=== PATIENT | female | born 1985 | race Caucasian/White ===

== ENCOUNTER → 2016-08-27 | Outpatient (CLI) | payer BC ==
--- NOTE | 2016-08-27 14:21 | DI ---
History: evaluation, a second trimester. Prior study: None. Procedure study performed transabdominally using the mid frequency transducer Findings: Single living intrauterine identified in vertex presentation. Normal amniotic flu id volume. Fundal placenta without evidence of abruption or calcification. . age parameters including BPD, HC, AC & FL are in fairly close agreement varying between 19 we eks 2 days and 19 weeks 5 days, aggregate 19 weeks 4 days. By dates, 19 weeks one day is recorded. ED D is 01/20/17 heart rate 150 beats per minute. anatomy: Bony calvarium is normal. Intracranial contents normal regarding ventricles. Small cho roid plexus cyst identified measuring about 3 mm in diameter. No evidence of nuchal thickening. Heart is well-visualized and appears unremarkable. No evidence of ascites. No gastric wall abnormalities seen. Liver spleen and kidneys are normal. No ascites identified. Extremities unremarkable to extent detected. No sonographic evidence of cleft palate. Dorsal spine normal. Impression: Single living intrauterine , estimated gestational age 19 weeks 4 days by examin ation. Small choroid plexus cyst. Suggest repeat ultrasound after week 26
== END ==
LOC: US 10:45
PROVIDERS: ATTEND Family Medicine
DX: Z36 Encounter for antenatal screening of mother (principal); Z3A.19 19 weeks gestation of pregnancy
CPT/HCPCS: 76805

== ENCOUNTER → 2016-10-29 | Outpatient (CLI) | payer BC ==
[2016-10-29 10:18] LABS: HEMATOCRIT 34.8 % (37.0-47.0); HEMOGLOBIN 11.6 g/dL (12.0-16.0); MEAN CORPUSCULAR HEMOGLOBIN 29.7 PG (27-31); MEAN CORPUSCULAR HGB CONC 33.3 g/dL (33-37); MEAN PLATELET VOLUME 10.2 FL (7.4-12.2); RED BLOOD COUNT 3.91 10^6/uL (4.20-5.40)
== END ==
LOC: MOB LAB 08:52
PROVIDERS: ATTEND Family Medicine
DX: Z36 Encounter for antenatal screening of mother (principal); Z3A.28 28 weeks gestation of pregnancy
CPT/HCPCS: 82950; 84443; 85027

== ENCOUNTER → 2016-11-05 | Outpatient (CLI) | payer BC ==
--- NOTE | 2016-11-06 11:41 | DI ---
US OB , LIMITED,11/05/2016 10:58 AM: Clinical History: Choroid plexus cyst. Previous Exam: September 03, 2016 Findings: Multiple grayscale and color Doppler sonographic images are obtained through the pelvis demonstrating a single intrauterine gestation in vertex presentation. Amniotic fluid level was subjectively normal . There was normal motion of the limbs and detected Doppler heart tones measured 139 beats per minute . Visualized portions of the choroid plexus reveal no definite cyst at this time. Evaluation of the lef t choroid plexus was somewhat limited. Impression: Single live intrauterine gestation with interval resolution of the choroid plexus cyst seen on the pr ior exam.
== END ==
LOC: MOB LAB 08:00
PROVIDERS: ATTEND Family Medicine
DX: Z36 Encounter for antenatal screening of mother (principal); O35.0XX0 Maternal care for (suspected) central nervous system malformation in fetus, not applicable or unspecified; Z3A.29 29 weeks gestation of pregnancy
CPT/HCPCS: 36415; 76815; 82951; 82952

== ENCOUNTER → 2016-12-23 | Outpatient (CLI) | payer BC | LOC: MOB LAB 08:52 | PROVIDERS: ATTEND Family Medicine | DX: Z36 Encounter for antenatal screening of mother (principal); Z3A.36 36 weeks gestation of pregnancy | CPT/HCPCS: 87150 ==

== ENCOUNTER → 2016-12-30 | Outpatient (CLI) | payer BC ==
--- NOTE | 2016-12-30 22:31 | DI ---
US OB , LIMITED,12/30/2016 3:24 PM: Clinical History: Uterine size date discrepancy. Previous Exam: November 05, 2016 Findings: Multiple grayscale and color Doppler sonographic images are obtained through the pelvis demonstrating a single live intrauterine gestation in vertex presentation. Amniotic fluid level is within normal limits (15.7 cm). Estimated gestational age was determined by a composite of biparietal diameter, head circumference, a bdominal circumference and femur length yielding an estimated gestational age by ultrasound of 37 wee ks zero days. Estimated weight was 3136 g (61st percentile). Umbilical artery Doppler is are performed demonstrating SD ratios between 1.8 and 2.2. Detected Doppler heart tones measure 144 beats per minute. Impression: Single live intrauterine gestation with size equal to dates.
== END ==
LOC: US 15:20
PROVIDERS: ATTEND Family Medicine
DX: O26.843 Uterine size-date discrepancy, third trimester (principal); Z3A.37 37 weeks gestation of pregnancy
CPT/HCPCS: 76815

== ENCOUNTER 2017-01-06 23:30 | Inpatient (IN) | payer BC ==
[2017-01-07] MEDS ORDERED: CITRIC ACID/SODIUM CITRATE 30 ML CUP PO ONE ×2 (00:27→00:38)
[2017-01-07] MEDS ORDERED: Lactated Ringers-OB Dept 2,000 ML ONE (00:27)
[2017-01-07] MEDS ORDERED: Metoclopramide Inj 10 MG/2 ML VIAL ONE (00:27)
[2017-01-07] MEDS ORDERED: FAMOTIDINE 20 MG/2 ML VIAL IVP ONE (00:28)
[2017-01-07] MEDS ORDERED: ePHEDrine Inj 50 MG/ML AMP ONE (00:32)
[2017-01-07] MEDS ORDERED: Sodium Chloride 0.9% 100 ML IV ONE (00:32)
[2017-01-07] MEDS ORDERED: MORPHINE SULFATE/PF 10 MG/10 ML AMPULE ONE (00:34)
[2017-01-07] MEDS ORDERED: CefOXitin Inj 2 GM in Sodium Chloride 0.9% 100 ML IV ONE (00:38)
[2017-01-07] MEDS ORDERED: LIDOCAINE W/ SODIUM BICARB 0.5 ML SYR SUBD PRN (00:38)
[2017-01-07] MEDS ORDERED: Metoclopramide Inj 10 MG/2 ML VIAL IV ONE (00:38)
[2017-01-07] MEDS ORDERED: NORMAL SALINE 10 ML SYRINGE FLUSH IVP PRN ×3 (00:38→02:06)
[2017-01-07] MEDS ORDERED: Famotidine Inj 20 MG in Normal Saline Flush 10 ML IVP ONE (00:38)
[2017-01-07] MEDS ORDERED: Lactated Ringers 1,000 ML PRIMARY IV ONE (00:38)
[2017-01-07] MEDS ORDERED: Oxytocin 20 Units + LR 1,000 ML IV SCH ×2 (00:45→02:06)
[2017-01-07] MEDS ORDERED: Lactated Ringers 1,000 ML PRIMARY IV SCH ×2 (00:45→01:45)
[2017-01-07 00:51] LABS: HEMATOCRIT 34.7 % (37.0-47.0); HEMOGLOBIN 11.7 g/dL (12.0-16.0); MEAN CORPUSCULAR HEMOGLOBIN 29.8 PG (27-31); MEAN CORPUSCULAR HGB CONC 33.7 g/dL (33-37); MEAN CORPUSCULAR VOLUME 88.3 FL (81-99); MEAN PLATELET VOLUME 10.2 FL (7.4-12.2); RED BLOOD COUNT 3.93 10^6/uL (4.20-5.40)
[2017-01-07] MEDS ORDERED: Oxytocin 20 Units + LR 1,000 ML IV ONE (00:51)
[2017-01-07] MEDS ORDERED: ONDANSETRON 4 MG/2 ML VIAL ONE (01:10)
[2017-01-07] MEDS ORDERED: KETOROLAC 30 MG/1 ML VIAL ONE (01:16)
[2017-01-07] MEDS ORDERED: HYDROmorphone 2 MG/1 ML IVP PRN (01:39)
[2017-01-07] MEDS ORDERED: Nalbuphine Inj 20 MG/ML Ampule IVP PRN (01:39)
[2017-01-07] MEDS ORDERED: ONDANSETRON 4 MG/2 ML VIAL IVP PRN ×2 (01:39→02:06)
--- NOTE | 2017-01-07 01:41 | CRNA.PROCE ---
Central Neuraxis Block Placemt - - Safety Measures: Time Out Taken - - Type of Block: Subarachnoid Reason for Block: Surgical Moniters Used During Block: EKG, SPO2, NIBP Skin Prep Used: ChloroPrep Spinal Needle Used: 22 Daomn 80 mm Local Anesthetic - Enter Amount Used in Comment Field: 0.75 % Bupivacaine with Dextrose (ml): Yes (2ml) Additive Used - Enter Amount Used in Comment Field: Preservative Free Morphine ( mg): Yes (.15) Bioclusive Dressing Applied: No
[2017-01-07] MEDS ORDERED: Famotidine Inj 20 MG in Normal Saline Flush 10 ML IVP PRN (02:06)
[2017-01-07] MEDS ORDERED: diphenhydrAMINE 25 MG CAPSULE PO PRN (02:06)
[2017-01-07] MEDS ORDERED: METHYLERGONOVINE MALEATE 0.2 MG/1 ML VIAL IM PRN (02:06)
[2017-01-07] MEDS ORDERED: LANOLIN HPA 40 GM TUBE TOPICAL PRN (02:06)
[2017-01-07] MEDS ORDERED: DIPH,PERTUSS,TET(ADACEL) VAC/PF 0.5 ML (Tdap) IM SCH (02:06)
[2017-01-07] MEDS ORDERED: MISOPROSTOL 200 MCG TABLET RECTAL ONE (02:06)
[2017-01-07] MEDS ORDERED: Naloxone Inj 0.01 MG, Sodium Chloride 0.9% vial 1 ML IVP PRN ×2 (02:06)
[2017-01-07] MEDS ORDERED: OXYTOCIN 10 UNIT/1 ML IM ONE (02:06)
[2017-01-07] MEDS ORDERED: Carboprost Inj 250 MCG/ML AMP IM PRN (02:06)
[2017-01-07] MEDS ORDERED: HYDROmorphone 2 MG/1 ML IV PRN (02:06)
[2017-01-07] MEDS ORDERED: CALCIUM CARBONATE 500 MG (TUMS) CHEWABLE TABLET PO PRN (02:06)
[2017-01-07] MEDS ORDERED: diphenhydrAMINE 50 MG/1 ML VIAL IV PRN (02:06)
[2017-01-07] MEDS ORDERED: Methylergonovine Tab 0.2 MG TAB PO PRN (02:06)
--- NOTE | 2017-01-07 02:15 | OB.OP.NOTE ---
Operative Report Surgeon: Mark Correa MD Dietitian Therapeutic: Nikunj Fernandes MD Anesthesia Type: General Anesthesia Provider: Christian Lowery CRNA Surgery Date: 01/07/17 Preoperative Diagnosis: Labor Postoperative Diagnosis: Previous section Procedure: Repeat section Complications: none Estimated Blood Loss (mL): 600 Urine Output (mL): 50 Fluids: 2000 cc LR Indications: We do not offer vaginal after section trials at our facility and the patient did not desire this. She is requesting a repeat section. Findings: Male in cephalic presentation, with clear amniotic fluid. Description of Procedure: The patient was taken to the operating room where spinal anesthesia was found to be adequate. She was then prepared and draped in the normal sterile fashion in the dorsal supine position with a leftward tilt. A Pfannenstiel skin incision was then made with the scalpel and carried through to the underlying layer of fascia with Bovie. The fascia was incised in the midline and the incision extended laterally with the Bovie. The superior aspect of the fascial incision was then grasped with Robel clamps, elevated, and the underlying rectus muscles dissected off bluntly. Attention was then turned to the inferior aspect of this incision which, in a similar fashion, was grasped with Robel clamps and the rectus muscles dissected off both bluntly and with the Bovie. The rectus muscles were then in the midline, and the peritoneum identified, and entered in bluntly. The peritoneal incision was then extended superiorly and inferiorly with good visualization of the bladder. The David retractor was then inserted and the vesicouterine peritoneum identified. The lower uterine segment was incised in the transverse fashion with the scalpel. The uterine incision was then extended laterally in a blunt fashion. The ' s head was delivered atraumatically. The nose and mouth were suctioned with the bulb suction and the cord clamped and cut. The infant was handed off to the awaiting nurse. Cord gases and cord blood were sent for analysis. The placenta was then removed manually; the uterus exteriorized, and cleared of all clots and debris. The uterine incision was repaired with 0 Vicryl in a running, locked fashion. A second layer of the same suture was used to obtain excellent hemostasis. The peritoneal cavity was then copiously irrigated with warm saline. The uterus was returned to the abdomen. The paracolic gutters were copiously irrigated with warm saline and a second look at the uterine incision continued to reveal excellent hemostasis. The peritoneum was closed with 3-0 Vicryl. The fascia was reapproximated with 0 PDS in a running fashion. The subcutaneous space was irrigated copiously with warm saline and closed first with 3-0 Vicryl and then more superficially with Insorb absorbable sutures. The skin was reapproximated with Steri-Strips and a Silverlon dressing applied. Fundal massage was completed with no clots in vaginal vault. The patient tolerated the procedure well. Sponge, lap, and needle counts were correct x2. Ancef was given preoperatively less than one hour prior to incision time. The patient was taken to the recovery room in stable condition.
[2017-01-07] MEDS: Nalbuphine Inj 20 MG/ML Ampule IVP PRN ×5 (03:29→21:06)
[2017-01-07] MEDS: D5-LR 1,000 ML PRIMARY IV SCH (06:46)
[2017-01-07] MEDS: KETOROLAC 30 MG/1 ML VIAL IVP PRN ×3 (07:09→20:51)
[2017-01-07] MEDS: oxyCODONE-ACETAMINOPHEN 5-325 TAB PO PRN ×4 (08:08→20:51)
--- NOTE | 2017-01-07 10:08 | CRNA.PROGR ---
Anesthesia Note Anesthesia Progress Note: Post OP Anesthesia note Pt is sitting up in bed, has been up to the bathroom, and ambulating. She has been tolerating a regular diet, and states pain well under control. However, she is having some residual pruritis from the duramorph. Nubain has been effective at relieving the pruritis. She denies any residual probles from the SAB otherwise. Current VSS. Vital Signs (Last 8 hours) Temp Pulse Pulse Resp BP BP Pulse Ox 01/07/17 07:12 97.4 F 94 16 111/80 95 01/07/17 02:15 96.4 F L 93 16 129/63 93
[2017-01-08] MEDS ORDERED: IBUPROFEN 800 MG TABLET PO PRN (01:52)
[2017-01-08] MEDS: oxyCODONE-ACETAMINOPHEN 5-325 TAB PO PRN ×2 (02:58→09:22)
[2017-01-08] MEDS: KETOROLAC 30 MG/1 ML VIAL IVP PRN (02:59)
[2017-01-08 07:50] LABS: HEMATOCRIT 30.2 % (37.0-47.0); MEAN CORPUSCULAR HEMOGLOBIN 29.9 PG (27-31); MEAN CORPUSCULAR HGB CONC 33.1 g/dL (33-37); MEAN CORPUSCULAR VOLUME 90.1 FL (81-99); MEAN PLATELET VOLUME 9.7 FL (7.4-12.2); RED BLOOD COUNT 3.35 10^6/uL (4.20-5.40)
[2017-01-08] MEDS ORDERED: Prenatal Multivitamin Tab 1 TAB TAB PO SCH (09:00)
[2017-01-08] MEDS ORDERED: Senna/Docusate Tab 1 TAB TAB PO SCH (09:00)
[2017-01-08] MEDS: D5-LR 1,000 ML PRIMARY IV SCH (15:53)
[2017-01-08 16:21] VITALS: RESP 20; TEMP 98.2
--- NOTE | 2017-01-10 22:24 | OB.PROGRES ---
Subjective Post Op Day: 0 Coates Catheter: No Flatus: No Diet: Regular [place] Feeding Method: Exculsively Ambulating: Yes Concerns / Additional Information: Already has her catheter out, ambulating around room. Tolerating a regular diet. Has no complaints. Objective - General General Appearance: POSITIVE: No Acute Distress, Cooperative - Cardiovacular Cardiovascular Exam: POSITIVE: RRR, No Murmur Edema: +1 Pedal Edema Extremities: Negative Manuel's - Bilaterally - Respiratory Respiratory Exam: POSITIVE: Clear to Auscultation - Bilaterally, Breathing Non Labored - Abdomen Abdominal Wound Assessment: Silverlone Dressing Assesstment / Plan (1) Status post repeat low transverse section Status: Acute Assessment / Plan: -routine cares. -breast feeding going well. -rubella equivocal--will need MMR prior to d/c. -rh positive. -plan to d/c home in 1-2 days.
--- NOTE | 2017-01-10 22:31 | OB.PROGRES ---
Subjective Post Day: 1 Pain Management: PO Coates Catheter: No Flatus: Yes Diet: Regular [place] Feeding Method: Exculsively Ambulating: Yes Concerns / Additional Information: Feeling well, was able to get some rest. Tolerating regular diet. Moderate lochia. Did notice a lump around her umbilicus yesterday, but is unable to palpate that today. Voiding without difficulty. No bowel movement yet. Objective - General General Appearance: POSITIVE: No Acute Distress, Cooperative - Cardiovacular Cardiovascular Exam: POSITIVE: RRR, No Murmur Edema: +1 Pedal Edema Extremities: Negative Manuel's - Bilaterally - Respiratory Respiratory Exam: POSITIVE: Clear to Auscultation - Bilaterally, Breathing Non Labored - Abdomen Abdominal Wound Assessment: Silverlone Dressing, Well Approximated, Asymptomatic , Steri Strips Intact Assesstment / Plan (1) Status post repeat low transverse section Status: Acute Assessment / Plan: -routine cares. -rubella equivocal--needs MMR vaccine prior to d/c. -received Tdap. -breast feeding going well. -rh positive. -pt requesting d/c home today.
== END 2017-01-08 11:00 | disposition home or self-care (01) | DRG 766 ==
LOC: OBIP 23:30
PROVIDERS: ADMIT Obstetrics & Gynecology; ATTEND Family Medicine
PROC: 10D00Z1 Extraction of Products of Conception, Low, Open Approach (ICD-10-PCS; principal; 2017-01-06)
DX: O34.211 Maternal care for low transverse scar from previous cesarean delivery (principal); N85.8 Other specified noninflammatory disorders of uterus; Z3A.38 38 weeks gestation of pregnancy; Z37.0 Single live birth
CPT/HCPCS: 36415; 85027; 86850; 86900; 86901; 94150; 94761; J1885; J2405; J2765; J7050; J7120